=== PATIENT | female | born 1995 | race Caucasian/White ===

== ENCOUNTER 2017-11-17 21:37 | Emergency (ER) | payer OTHER ==
[~2017-11-17] VITALS: Ht 160 cm; Wt 48.4 kg
[2017-11-17 21:55] VITALS: Ht 160 cm; Wt 48.4 kg
[2017-11-17] MEDS ORDERED: ACETAMINOPHEN 500 MG TAB PO ONE (22:31)
[2017-11-17] MEDS ORDERED: IBUP-1050 PO (23:07)
[2017-11-17] MEDS ORDERED: DEXT1CAP9 PO (23:07)
[2017-11-17] MEDS ORDERED: NORGTAB39 PO (23:07)
[2017-11-17 23:27] LABS: INFLUENZA B ANTIGEN Neg for Influ B (NEG)
--- NOTE | 2017-11-17 23:55 | EMERGENCY ROOM VISIT NOTE ---
ED Visit Note First contact with patient: 22:32 CHIEF COMPLAINT: "I have the flu" HISTORY OF PRESENT ILLNESS: This 22-year-old female patient presents to the emergency department ambulatory, complaining of fever, cough, sore throat, congestion, and body aches x 5 days. The patient was seen by her PCP earlier this week and told that she has the flu. She has been intermittently taking ibuprofen and DayQuil for her symptoms. She states this evening, prior to taking antipyretics, she experienced a fever of 10 4F. She contacted a nurse hotline, and was encouraged to come to the emergency Department for evaluation due to this fever. The patient states she did take ibuprofen prior to arrival in the emergency department, and her fever has improved. They deny any other symptoms including otalgia, swollen lymph nodes, nausea, or vomiting. There is pain with swallowing due to the sore throat. The patient did not receive an influenza vaccination this year. The patient has been tolerated oral fluids and foods. REVIEW OF SYSTEMS: A 10 system review of systems was performed with positives and pertinent negatives listed in the history of present illness. All other systems were reviewed and are negative. ALLERGIES: Amoxicillin MEDICATIONS: Oral control PMH: None SOCIAL HISTORY: The patient is a [employer] student. She lives locally with her roommate. She denies drug, alcohol, tobacco use. PHYSICAL EXAM: VITALS: Vitals are noted on the nurse's note and reviewed by myself. Initial tachycardia noted, however this improved after antipyretics given. GENERAL: This is a 22-year-old female, in no acute distress, nondiaphoretic, well-developed well-nourished. SKIN: The skin was without rashes, erythema, edema, or bruising. There is no tenting of the skin. Capillary reflex less than 2 seconds. HEAD: Normocephalic atraumatic. EARS: External auditory canals clear, bilateral tympanic membranes pearly gr without erythema or effusion bilaterally. EYES: Pupils equal round and reactive to light and accommodation. Conjunctivae without injection, sclerae without icterus. Extraocular movements intact. NOSE: Patent, turbinates without inflammation or erythema. Clear rhinorrhea noted. No sinus tenderness. MOUTH: Mucous membranes moist. Tonsils are not enlarged. Pharynx without erythema or exudate. Uvula midline. Airway patent. Tongue does not deviate. NECK: Supple without nuchal rigidity. No lymphadenopathy. No thyromegaly. Cervical spine is nontender. No JVD. HEART: Regular rate and rhythm without murmurs gallops or rubs. LUNGS: Clear to auscultation bilaterally without wheezes, rales or rhonchi. No dullness to percussion. No retractions or accessory muscle use. MUSCULOSKELETAL: No muscle atrophy, erythema, or edema noted. Full range of motion without joint tenderness in all extremities. No tenderness to palpation. Normal gait. Strength 5/5 throughout. NEURO: Patient was alert and oriented to person place and time. Normal sensation to light and sharp touch. No focal neurological deficits. RADIOLOGY: CXR: No obvious infiltrates EMERGENCY DEPARTMENT COURSE: The patient was seen and evaluated as above. Influenza testing was performed by nursing staff. The patient had been given Tylenol prior to my examination per nursing staff. I did recommend lab evaluation to rule out severe infection or kidney function problems, and the patient declines. The patient was agreeable to chest x-ray to rule out pneumonia. This was performed and reviewed by myself. I discussed results of testing with the patient at bedside. Discharge instructions reviewed, and the patient was discharged home in good condition. I attest that I have personally reviewed the patient's current medication list. Patient was found to have normal blood pressure on screening and does not require follow-up. DIFFERENTIAL DIAGNOSIS: Influenza, pneumonia, bronchitis, Acute Sinusitis, Acute pharyngitis, URI, Strep Pharyngitis, Peritonsillar abscess, tonsilitis, malignancy, and others DIAGNOSIS: influenza-like symptoms Current/Historical Medications Scheduled Norgestimate-Ethinyl Estradiol (Ortho Tri-Cyclen Lo), 1 TAB PO DAILY Scheduled PRN Dextromethorphan-Phenylephrine (Vicks Dayquil Cold & Flu), 1 CAP PO DIRECTED PRN for COLD/FLU Ibuprofen (Advil), 200-600 MG PO Q4H PRN for Pain or Fever Allergies Coded Allergies: Amoxicillin (Verified Allergy, Unknown, HAPPENED A CHILD, 11/17/17) Penicillins (Verified Allergy, Unknown, RASH, 11/17/17) Vital Signs Date Time Temp Pulse Resp B/P (MAP) Pulse Ox O2 Delivery O2 Flow Rate FiO2 11/18/17 00:03 37.1 85 19 114/71 97 2/1/18 21:55 37.6 111 19 119/82 97 Room Air Laboratory Results Test 11/17/17 22:15 Influenza Type A Antigen Neg for Influ A (NEG) Influenza Type B Antigen Neg for Influ B (NEG) Medications Administered Medications (Trade) Dose Ordered Sig/[place] Route Start Time Stop Time Status Last Admin Dose Admin Acetaminophen (Tylenol Tab) 1,000 mg STK-MED ONCE PO 11/17/17 22:31 11/17/17 22:32 DC 11/17/17 22:33 1,000 MG Departure Information Impression Primary Impression: Influenza-like symptoms Dispostion Home / Self-Care Condition [employer] Forms HOME CARE DOCUMENTATION FORM, Days off school: 7 School Instructions, Return To School: 1 week Additional Instructions: or until fever free for 24 hours without medications. IMPORTANT VISIT INFORMATION Patient Instructions ED Flu, My [facility] Additional Instructions You were seen and evaluated in the emergency department today for an upper respiratory infection/influenza-like illness. I do feel that based on your symptoms, and the duration of illness, this is likely viral in nature. As discussed, antibiotics will not treat viral illness. Use the albuterol inhaler and/or cough medication you were provided by your previous doctor for symptoms. For your sore throat, you may use a 1:1 mixture of liquid Benadryl and liquid Maalox. Gargle and spit this mixture. It will help to soothe the throat and provide some relief. Drink warm tea with honey and lemon, as this will also help to soothe the throat. Gargle with salt water frequently. As discussed, you should take OTC Mucinex and/or Sudafed for your symptoms. Please do not exceed the recommended daily dosages. Ibuprofen(Motrin, Advil) may be used for fever or pain. Use 600mg every six hours as needed. Take with food. Avoid using more than 2400mg in a 24 hour period. Do not use 2400mg per day for more than three consecutive days without physician direction. Prolonged inappropriate use can lead to stomach upset or ulcers. This medication will help with the swelling in your sinuses. (AND/OR) Acetaminophen(Tylenol) may be used for fever or pain. Use 1000mg every six hours as needed. Avoid using more than 3000mg in a 24 hour period. For congestion, you may use Flonase OTC. You may want to consider zinc, echinacea, and vitamin C to help boost your immunity. Please get plenty of rest and drink plenty of fluids. Please return or follow-up with your PCP in 1 week if you are not experiencing any improvement in your symptoms. Return to the emergency department for coughing up blood, difficulty breathing, chest pain, worsening symptoms, or for other concerns. School Instructions Return To School: 1 week Additional School Instructions: or until fever free for 24 hours without medications.
[2017-11-18 00:03] VITALS: BP 114/71; PULSE 85; TEMP 37.1; O2SAT 97
--- NOTE | 2017-11-18 07:14 | DIAGNOSTIC IMAGING REPORT ---
TWO VIEW CHEST CLINICAL HISTORY: Cough and fever. FINDINGS: PA and lateral chest radiographs are obtained. No prior studies are available for comparison at the time of dictation. The cardiomediastinal silhouette is unremarkable. The lungs and pleural spaces are clear. There is no pneumothorax. The bony thorax appears intact. IMPRESSION: No active disease in the chest. Electronically signed by: David Soto M.D. 11/18/2017 7:12 AM Dictated Date/Time: 11/18/2017 7:12 AM
== END 2017-11-18 00:04 | disposition home or self-care (01) ==
LOC: C.EDB 21:37 → C.EDC 11-18 00:04
DX: R05 Cough (principal); J02.9 Acute pharyngitis, unspecified